=== PATIENT | female | born 1930 | race Caucasian/White ===

== ENCOUNTER 2018-02-12 16:22 | Emergency (ER) | payer MEDICARE ==
[~2018-02-12 16:22] MED LIST: AMIO0.1T PO; AMLO2.5T PO; ASPI-516 CHEW; CARB25TA9 PO; FURO1TAB62 PO; LEVO25TA4 PO; MULT-135 PO; OXYB5TAB8 PO
--- NOTE | 2018-02-12 16:32 | PD ---
HPI Chief Complaint: Status post fall Time Seen by Provider: 16:25 Travel History International Travel<30 days: No Contact w/Intl Traveler<30days: No Traveled to known affect area: No History of Present Illness HPI Patient comes in stating that she had a mechanical trip and fall after getting her food and [employer]. She ended up falling flat on her buttocks and then going somewhat forward hitting the side of her head against her vehicles bumper. Witnesses were present and described the event and corroborated, denied any LOC or seizure tonic-clonic type activity noted. Patient denies any alleviating or aggravating factors. Patient comes in complaining of right sided head pain and low back pain. Both are described as sharp pain, nonradiating, 6-7 out of 10, worse by palpation or touching. Patient denies any associated factors such as loss of consciousness, fever, rash, chest pain, abdominal pain, pelvic pain, pain over the coccyx, nausea, vomiting, diarrhea, cough/runny nose/sore throat/visual changes. Stated allergies to cephalexin, doxazosin, doxycycline, epinephrine, penicillin, Past medical history significant for hypothyroid, neuropathy of bilateral feet, craniotomy for subdural bleed, atrial flutter history atrial fibrillation, hypertension, small bowel obstruction, cholecystectomy, hysterectomy, per record review patient has thrombocytopenia and sickle cell disease as well as developed C. difficile during her craniotomy admission. PFSH Past Medical History Hx Anticoagulant Therapy: Yes (BABY ASA) Arthritis: Yes (HANDS, FEET) Asthma: No Atrial Fibrillation: Yes Autoimmune Disease: No Blood Disorders: No Anxiety: No Depression: No Heart Rhythm Problems: Yes (A-FLUTTER) Cancer: Yes (LEFT BREAST) Cardiovascular Problems: Yes High Cholesterol: No Chemotherapy: No Chest Pain: No Congestive Heart Failure: No COPD: No Cerebrovascular Accident: No Diabetes: No Diminished Hearing: No Endocrine: Yes Gastrointestinal Disorders: Yes (SBO) GERD: No Glaucoma: Yes Genitourinary: Yes (OVERACTIVE) Headaches: No Hepatitis: No Hiatal Hernia: No Hypertension: Yes Immune Disorder: No Implanted Vascular Access Dvce: No Musculoskeletal: Yes (ARTHRITIS, OSTEOPENIA) Neurologic: Yes (NEUROPATHY IN BILATERAL FEET, SUBDURAL BLEED ) Psychiatric: No Reproductive: No Respiratory: No Migraines: No Myocardial Infarction: No Radiation Therapy: No Seizures: No Sickle Cell Disease: Yes Sleep Apnea: No Thyroid Disease: Yes (HYPO) Ulcer: No Menopausal: Yes : 2 Para: 2 Miscarriage: 0 : 0 Past Surgical History Abdominal Surgery: Yes ( PARTIAL SM. BOWEL RESECT., [id number]) AICD: No Appendectomy: No Arteriovenous Shunt: No Cardiac Surgery: No Cholecystectomy: Yes Ear Surgery: No Endocrine Surgery: No Eye Surgery: No Genitourinary Surgery: No Gynecologic Surgery: Yes (HYSTERECTOMY 1974 , VULVA SURGERY ) Hysterectomy: Yes Insulin Pump: No Joint Replacement: No Neurologic Surgery: Yes (CRANIOTOMY (TRAUMA)) Oral Surgery: No Pacemaker: No Thoracic Surgery: No Other Surgery: Yes (CRANIOTOMY 03/2009 SECONDARY TO SUBDURAL HEMATOMA. LEFT MASTECTOMY 1973) Social History Alcohol Use: No Tobacco Use: No Substance Use: No Allergies-Medications (Allergen,Severity, Reaction): Coded Allergies: doxazosin (Verified Allergy, Severe, 02/12/18) doxycycline (Verified Allergy, Severe, Hives, 02/12/18) penicillin G (Verified Allergy, Severe, Hives, 02/12/18) cephalexin (Verified Allergy, Unknown, RASH, 02/12/18) epinephrine (Verified Adverse Reaction, Unknown, TAKES PACERONE, 02/12/18) PER DR MARSHALL Uncoded Allergies: "DECONGESTANTS" (Adverse Reaction, Unknown, TAKES PACERONE, 05/11/15) PER DR MARSHALL Reported Meds & Prescriptions Reported Meds & Active Scripts Active Ditropan (Oxybutynin Chloride) 5 Mg Tab 5 Mg PO Q12HR 30 Days Reported Carbidopa-Levodopa 25-100 Mg Tab 1 Tab PO TID Aspirin 81 Mg Chew 81 Mg CHEW DAILY Multi Vitamin (Multiple Vitamin) 1 Tab Tab 1 Tab PO DAILY Lasix (Furosemide) 20 Mg Tab 20 Mg PO DAILY PRN Amiodarone (Amiodarone HCl) 100 Mg Tab 100 Mg PO EVERY OTHER DAY on and thursday Levothyroxine (Levothyroxine Sodium) 25 Mcg Tab 25 Mcg PO DAILY Amlodipine (Amlodipine Besylate) 2.5 Mg Tab 2.5 Mg PO DAILY Review of Systems General / Constitutional: No: Fever Eyes: No: Visual changes HENT: Positive: Headaches Cardiovascular: No: Chest Pain or Discomfort Respiratory: No: Shortness of Breath Gastrointestinal: No: Abdominal Pain Genitourinary: No: Dysuria Musculoskeletal: Positive: Other (Low back pain) Skin: No Rash Neurologic: No: Weakness Psychiatric: No: Depression Endocrine: No: Polydipsia Hematologic/Lymphatic: No: Easy Bruising Physical Exam Narrative GENERAL: Well-nourished, well-developed patient in no apparent distress.patient arrived shedpacked, ccollar in place by ems. SKIN: Warm and dry. HEAD: Atraumatic. Normocephalic. EYES: Pupils equal and round. No scleral icterus. No injection or drainage. ENT: No nasal bleeding or discharge. Mucous membranes pink and moist. NECK: Trachea midline. No JVD. no midline ttp. C-collar in place. Backboard removed CARDIOVASCULAR: Regular rate and rhythm. no rubs or gallops RESPIRATORY: No accessory muscle use. Clear to auscultation. Breath sounds equal bilaterally. GASTROINTESTINAL: Abdomen soft, non-tender, nondistended. No rebound or guarding MUSCULOSKELETAL: Extremities without clubbing, cyanosis, or edema. No obvious deformities. NEUROLOGICAL: Awake and alert. No obvious cranial nerve deficits. Motor grossly within normal limits. Five out of 5 muscle strength in the arms and legs. Normal speech. PSYCHIATRIC: Appropriate mood and affect; insight and judgment normal. Data Data Last Documented VS Vital Signs Date Time Temp Pulse Resp B/P (MAP) Pulse Ox O2 Delivery O2 Flow Rate FiO2 02/12/18 17:10 64 16 157/71 (99) 98 Room Air 02/12/18 16:[address] Brain W/O Iv Contrast(Rout) (02/12/18 16:25) Ct Cerv Spine W/O Contrast (02/12/18 16:25) Spine, Lumbar Comp W/Obliq (02/12/18 ) Acetamin-Hydrocod 325-7.5 Mg (Adamant 7.5 (02/12/18 16:45) MDM Medical Decision Making Medical Screen Exam Complete: Yes Emergency Medical Condition: Yes Medical Record Reviewed: Yes Differential Diagnosis Skull fracture versus intracranial hemorrhage versus scalp contusion versus neck and low back fracture versus dislocation versus subluxation Narrative Course Head CT read by radiologist as no acute intracranial abnormalities with exception of right-sided sphenoid sinusitis CT C-spine shows no acute findings per radiology report and only reports a stable minimal anterolisthesis of C4 on C5 L spine shows per radiology report mild dextroscoliosis no acute fracture or dislocation Diagnosis Primary Impression: SCALP CONTUSION Additional Impression: LOW BACK STRAIN Patient Instructions: General Instructions, Low Back Strain (ED), Scalp Contusion in Adults (ED) Scripts Tramadol (Ultram) 50 Mg Tab 50 MG PO Q8H Y for PAIN, #12 TAB 0 Refills Prov: Drake Spicer MD 02/12/18 Disposition: 01 DISCHARGE HOME Condition: Stable Drake Spicer MD February 12, 2018 16:32
[2018-02-12 16:35] VITALS: BP 189/80; PULSE 105; RESP 20; TEMP 97.4; O2SAT 98
[2018-02-12] MEDS ORDERED: ACETAMINOPHEN/HYDROcodone 325 MG/7.5 MG TAB PO ONE (16:45)
[2018-02-12 17:10] VITALS: BP 157/71; PULSE 64; RESP 16; O2SAT 98
--- NOTE | 2018-02-12 17:26 | RADRPT ---
EXAM DATE/TIME: 02/12/2018 16:32 [facility] COMPARISON: No previous studies available for comparison. INDICATIONS : Lumbar spine pain post fall. MEDICAL HISTORY : Hypertension. Sickle Cell disease SURGICAL HISTORY : Hysterectomy. Bowel resection ENCOUNTER: Initial ACUITY: 1 day PAIN SCORE: 9/10 LOCATION: Bilateral lumbar spine FINDINGS: Mild dextroscoliosis. No acute fracture or spondylolisthesis. Moderate degenerative disc disease and facet arthropathy. CONCLUSION: 1. Mild dextroscoliosis. No acute fracture or spondylolisthesis. Yunior Martinez MD on February 12, 2018 at 17:22 Board Certified Radiologist. This report was verified electronically.
--- NOTE | 2018-02-12 17:35 | RADRPT ---
EXAM DATE/TIME: 02/12/2018 17:14 [facility] COMPARISON: CT BRAIN W/O CONTRAST, October 09, 2015, 21:44. INDICATIONS : Trauma. Fall. Hit back of head. RADIATION DOSE: 61.88 CTDIvol (mGy) MEDICAL HISTORY : Carcinoma, breast. Renal failure, chronic. Cardiovascular diseaseHypertension. SURGICAL HISTORY : Colon resection. Hysterectomy.Craniotomy.Cholecystectomy. ENCOUNTER: Initial ACUITY: 1 day PAIN SCALE: 7/10 LOCATION: cranial TECHNIQUE: Multiple contiguous axial images were obtained of the head. Using automated exposure control and adj ustment of the mA and/or kV according to patient size, radiation dose was kept as low as reasonably a chievable to obtain optimal diagnostic quality images. DICOM format image data is available electro nically for review and comparison. FINDINGS: No acute intracranial hemorrhage, mass effect or shift. No hydrocephalus. Focal encephalomalacia righ t frontal lobe similar to October 2015. Previous right craniotomy. Air-fluid level in the right-sided sphenoid sinus. CONCLUSION: No acute intracranial abnormalities. Right-sided sphenoid sinusitis. Yunior Martinez MD on February 12, 2018 at 17:30 Board Certified Radiologist. This report was verified electronically.
--- NOTE | 2018-02-12 17:37 | RADRPT ---
EXAM DATE/TIME: 02/12/2018 17:14 [facility] COMPARISON: No previous studies available for comparison. INDICATIONS : Trauma. Fall. Hit back of head. RADIATION DOSE: 25.78 CTDIvol (mGy) MEDICAL HISTORY : Cardiovascular disease. Renal failure, chronic. Carcinoma, breast.Hypertension. SURGICAL HISTORY : Colon resection. Hysterectomy.Craniotomy.Cholecystectomy. ENCOUNTER: Initial ACUITY: 1 day PAIN SCALE: 4/10 LOCATION: neck TECHNIQUE: Volumetric scanning of the cervical spine was performed. Multiplanar reconstructions in the sagittal, coronal and oblique axial planes were performed. Using automated exposure control and adjustment o f the mA and/or kV according to patient size, radiation dose was kept as low as reasonably achievable to obtain optimal diagnostic quality images. DICOM format image data is available electronically f or review and comparison. FINDINGS: No acute fracture. Stable minimal anterolisthesis of C4 on C5 since 2014 comparison. Moderate degener ative disc disease. No bony canal stenosis. Mild multilevel foraminal encroachment is stable. Apical lung scarring appears stable. Mild facet arthropathy. CONCLUSION: 1. No acute findings. Stable minimal anterolisthesis of C4 on C5. 2. Right-sided sphenoid sinusitis. Yunior Martinez MD on February 12, 2018 at 17:32 Board Certified Radiologist. This report was verified electronically.
[2018-02-12] MEDS ORDERED: TRAM50 PO (17:49)
[2018-02-12] MEDS ORDERED: ACETAMINOPHEN 325 MG TAB PO ONE (18:00)
[2018-02-12] MEDS ORDERED: ACETAMINOPHEN 650 MG/20.3 ML UDC PO ONE (18:30)
[2018-02-12 18:48] VITALS: BP 174/85; PULSE 64; RESP 16; O2SAT 98
== END 2018-02-12 18:50 | disposition home or self-care (01) ==
LOC: PHED 16:22
DX: S00.03XA Contusion of scalp, initial encounter (principal); S39.012A Strain of muscle, fascia and tendon of lower back, initial encounter; W01.198A Fall on same level from slipping, tripping and stumbling with subsequent striking against other object, initial encounter; E03.9 Hypothyroidism, unspecified; G62.9 Polyneuropathy, unspecified; I48.91 Unspecified atrial fibrillation; I10 Essential (primary) hypertension; D57.1 Sickle-cell disease without crisis; I48.92 Unspecified atrial flutter
CPT/HCPCS: 70450; 72110; 72125

== ENCOUNTER 2018-11-16 21:01 | Observation (INO) ==
[2018-11-16] MEDS ORDERED: Sodium Chlor 0.9% Inj 500 ML IV.SIG ONE (21:44)
--- NOTE | 2018-11-16 22:11 | XR ---
EXAM DATE: 11/16/2018 10:01 PM EST AGE/SEX: 88 years / Female INDICATIONS: Chest pain. CLINICAL DATA: This is the patient's initial encounter. Patient reports that signs and symptoms have been present for 1 day and indicates a pain score of Nonresponsive. MEDICAL/SURGICAL HISTORY: Hypertension. None. COMPARISON: [facility], XR CHEST PA AND LAT, 07/14/2018. . FINDINGS: A single AP view of the chest demonstrates the lungs to be symmetrically hyperinflated without eviden ce of mass, infiltrate or effusion. Biapical scarring. Cardiomegaly. The cardiomediastinal contours a re unremarkable. Osseous structures are intact. Scoliosis. CONCLUSION: 1. No acute cardiopulmonary disease. 2. Hyperinflation. 3. Cardiomegaly. Electronically signed by: Jaime Fischer MD Board Certified Radiologist 11/16/2018 10:10 PM EST
[2018-11-16 23:06] LABS: Alanine Aminotransferase 9 U/L (10-53); Alkaline Phosphatase 105 U/L (45-117); Creatine Kinase 147 U/L (26-192); Total Protein 5.8 g/dL (6.4-8.2)
[2018-11-16 23:12] LABS: Baso % (Auto) 0.5 % (0.0-2.0); Eos # (Auto) 0.1 th/mm3 (0.0-0.4); Eos % (Auto) 1.5 % (0.0-4.0); Hematocrit 34.5 % (35.0-46.0); Hemoglobin 11.6 gm/dL (11.6-15.3); Lymph # (Auto) 0.5 th/mm3 (1.0-4.8); Lymph % (Auto) 9.5 % (9.0-44.0); Mean Corpuscular HGB Conc 33.6 % (32.0-36.0); Mean Corpuscular Hemoglobin 32.5 pg (27.0-34.0); Mean Corpuscular Volume 96.6 fL (80.0-100.0); Mean Platelet Volume 10.2 fL (7.0-11.0); Mono # (Auto) 0.4 th/mm3 (0.0-0.9); Mono % (Auto) 7.2 % (0.0-8.0); Neut # (Auto) 4.7 th/mm3 (1.8-7.7); Neut % (Auto) 81.3 % (16.0-70.0); Platelet Count 129 th/mm3 (150-450); Red Blood Count 3.57 mil/mm3 (4.00-5.30); Red Cell Distribution Width 13.9 % (11.6-17.2); White Blood Count 5.7 th/mm3 (4.0-11.0)
--- NOTE | 2018-11-16 23:17 | CT ---
EXAM DATE: 11/16/2018 11:14 PM EST AGE/SEX: 88 years / Female INDICATIONS: Dizziness. CLINICAL DATA: This is the patient's initial encounter. Patient reports that signs and symptoms have been present for 1 day and indicates a pain score of 3/10. MEDICAL/SURGICAL HISTORY: Hypertension. Subdural hematoma. Craniotomy. RADIATION DOSE: 34.89 CTDI (mGy) COMPARISON: [facility], CT BRAIN W/O CONTRAST, 02/12/2018. . TECHNIQUE: CT of the head without contrast. Using automated exposure control and adjustment of the mA and/or kV according to patient size, radiation dose was kept as low as reasonably achievable to ob tain optimal diagnostic quality images. DICOM format image data is available electronically for revi ew and comparison. FINDINGS: Previous right frontotemporal craniotomy. Minimal encephalomalacia in the right orbitofrontal region. Brain is elsewhere symmetric and normal. No evidence of mass or hemorrhage. Nothing to suggest acute infarction. CONCLUSION: No acute intracranial findings. . Electronically signed by: Justin Cruz MD Board Certified Radiologist 11/16/2018 11:15 PM EST
[2018-11-16 23:19] LABS: Creatine Kinase MB 3.8 ng/mL (0.5-3.6)
[2018-11-16 23:20] LABS: Activated Partial Thrombo Time 21.9 sec (23.4-31.7)
[2018-11-16 23:23] LABS: Albumin 3.1 g/dL (3.4-5.0); Anion Gap 6 meq/L (5-15); Aspartate Aminotransferase 24 U/L (15-37); Blood Urea Nitrogen 32 mg/dL (7-18); Calcium 8.2 mg/dL (8.5-10.1); Carbon Dioxide 27.6 meq/L (21.0-32.0); Chloride 113 meq/L (98-107); Glomerular Filtration Rate 66 mL/min (>89); Glucose,Random 94 mg/dL (74-106); Lipase 172 U/L (73-393); Magnesium 2.2 mg/dL (1.5-2.5); Potassium 3.9 meq/L (3.5-5.1); Sodium 147 meq/L (136-145)
--- NOTE | 2018-11-16 23:40 | ED ---
HPI General Chief complaint: Dizziness Stated complaint: dizzy, diarhea Time Seen by Provider: 11/16/18 21:36 History of Present Illness HPI narrative: Ms. Pierson is an 88 year old woman who is presenting with an episode of "blanking out" while sitting on a bar stool. She reports she had just finished eating supper and was sitting on the counter on a bar stool and had a sudden onset of "blanking out" at 7 PM in which everything went dark for 1 minute. She does not know whether or not she lost consciousness but she denies feeling dizzy before or after the episode. She denies hitting her head but did hit her right forearm on a frying rueda. She reports she has had diarrhea for four days, with 10-12 episodes per day. She reports she does not think she drank enough fluids today, reporting one cup of coffee and a cup of iced tea as her fluid intake for today. She denies any pain anywhere else other than her wrist. She reports she has had stomach cramps for a year that she has had extensive testing for but with no cause reported. She has been taking peptobismol for her diarrhea and her PCP advised her to start taking immodium today over the phone but she has not gotten the chance to do so yet. She says she gets diarrhea on/off for months. Viviana Tinsley, MS3 Related Data Home Medications Medication Instructions Recorded Confirmed amiodarone See Label Instructions .ROUTE 11/16/18 11/16/18 .COMPLEX amlodipine 2.5 mg PO DAILY 11/16/18 11/16/18 carbidopa-levodopa 1.5 tab PO TID 11/16/18 11/16/18 furosemide See Label Instructions .ROUTE 11/16/18 11/16/18 .COMPLEX levothyroxine 1 tab PO DAILY 11/16/18 11/16/18 Allergies Allergy/AdvReac Type Severity Reaction Status Date / Time doxazosin Allergy Severe Verified 02/12/18 16:40 doxycycline Allergy Severe Hives Verified 02/12/18 16:40 penicillin G Allergy Severe Hives Verified 02/12/18 16:40 cephalexin Allergy Unknown RASH Verified 02/12/18 16:40 epinephrine AdvReac Unknown TAKES Verified 02/12/18 16:40 PACERONE "DECONGESTANTS" AdvReac Unknown TAKES Uncoded 05/11/15 14:17 PACERONE Review of Systems ROS: all other systems reviewed are negative [facility] Medical History Medical History Hypertension (Acute) Hypothyroid (Acute) Irregular heart rhythm (Acute) Social History Social History Substance History: No History of Abuse Second Hand Smoke Exposure: No Smoking Status: Never smoker How Often Do You Have a Drink Containing Alcohol: Never Recent Travel in [facility] within the Last 8 Weeks: No Recent Out of Country Travel within the Last 8 Weeks: No Immunization History Tetanus Immunization: Unsure Exam Const General: cooperative, no acute distress and well developed Nutritional Appearance: well nourished Orientation: alert, awake and oriented x3 HENMT Head: normocephalic and atraumatic Nose: no nasal discharge and no epistaxis Mouth: other (Dry mucus membranes) Throat: posterior oropharynx normal and uvula midline Eyes Sclera: normal sclerae Pupils: PERRL Neck Neck: no meningeal signs, trachea midline and no JVD Resp Effort & Inspection: no use of accessory muscles Auscultation: clear to auscultation bilaterally Cardio Rate: regular rate Rhythm: regular rhythm Heart Sounds: no murmurs GI Inspection: non-distended Palpation: soft, no hepatosplenomegaly, no guarding, not rigid and nontender Auscultation: normal bowel sounds Back/Spine/Pelvis Back: CVA tenderness (Reported on the left.) Skin General: dry skin (warm) Neuro General: alert, awake and oriented x3 Cranial Nerves: CN's II-XI intact bilaterally Speech: speech normal Motor: strength 5/5 throughout and no movement abnormalities noted Sensory Exam: no sensory deficits noted Extrem General: normal to inspection, no calf tenderness, no clubbing, no cyanosis and no edema Psych Mood: congruent mood Affect: normal affect Judgment: judgment good Course Initial Documented Vital Signs Temperature 98.8 F 11/16/18 21:16 Pulse Rate 68 11/16/18 21:16 Respiratory Rate 16 11/16/18 21:16 Blood Pressure 162/68 H 11/16/18 21:16 Pulse Oximetry 97 11/16/18 21:16 Last Documented Vital Signs Temperature 98.8 F 11/16/18 21:16 Pulse Rate 62 11/17/18 02:00 Respiratory Rate 24 11/17/18 02:00 Blood Pressure 168/76 H 11/17/18 02:00 Pulse Oximetry 98 11/17/18 02:00 Medical Decision Making MDM Narrative Medical decision making narrative: I, Dr. Haines, have reviewed the medical student's documentation, and I am in agreement, met with the patient face to face, made the diagnosis, and the medical decision making was done by me. The patient was initially evaluated by Viviana MS III. Please see their complete history and physical. *My assessment and Findings: The patient presents with a reported history of blacking out for a few seconds prior to arrival. She reports that she had no symptoms prior to the onset of this. She reports that she did hit her head and also hit her right arm requiring a skin tear. She denies having any chest pain before or after the incident. She denies having any palpitations, shortness of breath, or lightheaded sensation. She does however report that she has had a recurrence of her chronic diarrhea that began approximately 4-5 days ago. She reports that she has had problems with this for the last year and has been under evaluation by both her primary care physician and a director customer. She reports that they have not been able to determine the cause. She reports that when she has the diarrheal episodes she will have up to 10-15 episodes of diarrhea daily. She reports that the stool is brown in color. She denies having any blood or mucus in the stool. During the course of the patient's emergency department visit, the patient's history, examination, and differential diagnosis were reviewed with the patient. The patient was placed on a hydrogen operator with oximetry and frequent blood pressure monitoring. The patient had IV access obtained and blood work sent for analysis. The patient was initially provided we will saline of 500 mL bolus x1. The patient's diagnostic studies were reviewed and remarkable for The patient's case including history, pertinent physical examination findings, and laboratory studies were discussed with Dr. Navarro. It was agreed that the patient would be admitted to the hospitalist service. Differential Diagnosis Differential Diagnosis: Vasovagal syncope, versus orthostasis, versus cardiac arrhythmia, versus acute coronary syndrome, versus intracranial hemorrhage Medical Records Medical records reviewed: Yes I reviewed the patient's medical records. Lab Data Lab results reviewed: Yes I reviewed the patient's lab results. Result diagrams: 11/16/18 22:15 11/16/18 22:15 Lab Results 11/16/18 11/16/18 11/16/18 Range/Units 22:15 22:15 22:15 WBC 5.7 (4.0-11.0) th/mm3 RBC 3.57 L (4.00-5.30) mil/mm3 Hgb 11.6 (11.6-15.3) gm/dL Hct 34.5 L (35.0-46.0) % MCV 96.6 (80.0-100.0) fL MCH 32.5 (27.0-34.0) pg MCHC 33.6 (32.0-36.0) % RDW 13.9 (11.6-17.2) % Plt Count 129 L (150-450) th/mm3 MPV 10.2 (7.0-11.0) fL Neut % (Auto) 81.3 H (16.0-70.0) % Lymph % (Auto) 9.5 (9.0-44.0) % Edmunds % (Auto) 7.2 (0.0-8.0) % Eos % (Auto) 1.5 (0.0-4.0) % Baso % (Auto) 0.5 (0.0-2.0) % Neut # (Auto) 4.7 (1.8-7.7) th/mm3 Lymph # (Auto) 0.5 L (1.0-4.8) th/mm3 Edmunds # (Auto) 0.4 (0.0-0.9) th/mm3 Eos # (Auto) 0.1 (0.0-0.4) th/mm3 Baso # (Auto) 0.0 (0.0-0.2) th/mm3 WBC Differential . Differential Comment Auto diff final PT 10.0 (9.8-11.6) sec INR 1.0 Ratio APTT 21.9 L (23.4-31.7) sec Sodium (136-145) meq/L Potassium (3.5-5.1) meq/L Chloride (98-107) meq/L Carbon Dioxide (21.0-32.0) meq/L Anion Gap (5-15) meq/L BUN (7-18) mg/dL Creatinine (0.50-1.00) mg/dL Estimated GFR (>89) mL/min Random Glucose (74-106) mg/dL Calcium (8.5-10.1) mg/dL Magnesium (1.5-2.5) mg/dL Total Bilirubin (0.2-1.0) mg/dL AST (15-37) U/L ALT (10-53) U/L Alkaline Phosphatase (45-117) U/L Total Creatine Kinase (26-192) U/L CK-MB (CK-2) (0.5-3.6) ng/mL Troponin I (0.02-0.05) ng/mL B-Natriuretic Peptide 202 H (0-100) pg/mL Total Protein (6.4-8.2) g/dL Albumin (3.4-5.0) g/dL Lipase (73-393) U/L Urine Color (Yellw/Straw) Urine Clarity (Clear) Urine pH (5.0-8.5) Ur Specific [place] (1.002-1.035) Urine Protein (Neg-Trace) mg/dL Urine Glucose (UA) (Negative) mg/dL Urine Ketones (Negative) mg/dL Urine Occult Blood (Negative) Urine Nitrate (Negative) Urine Bilirubin (Negative) Urine Urobilinogen (Less than 2) mg/dL Ur Leukocyte Esterase (Negative) Urine RBC (0-3) /hpf Urine WBC (0-5) /hpf Ur Squamous Epith Cells (0-5) /hpf Calcium Oxalate Crystal (None) /hpf Hyaline Casts (0-3) /lpf Urine Mucus (Occasional) /lpf Micro UA Comment Ur Microscopic Review Urine Culture Comments Serum Alcohol (0-5) mg/dL 11/16/18 11/17/18 Range/Units 22:15 00:10 WBC (4.0-11.0) th/mm3 RBC (4.00-5.30) mil/mm3 Hgb (11.6-15.3) gm/dL Hct (35.0-46.0) % MCV (80.0-100.0) fL MCH (27.0-34.0) pg MCHC (32.0-36.0) % RDW (11.6-17.2) % Plt Count (150-450) th/mm3 MPV (7.0-11.0) fL Neut % (Auto) (16.0-70.0) % Lymph % (Auto) (9.0-44.0) % Edmunds % (Auto) (0.0-8.0) % Eos % (Auto) (0.0-4.0) % Baso % (Auto) (0.0-2.0) % Neut # (Auto) (1.8-7.7) th/mm3 Lymph # (Auto) (1.0-4.8) th/mm3 Edmunds # (Auto) (0.0-0.9) th/mm3 Eos # (Auto) (0.0-0.4) th/mm3 Baso # (Auto) (0.0-0.2) th/mm3 WBC Differential Differential Comment PT (9.8-11.6) sec INR Ratio APTT (23.4-31.7) sec Sodium 147 H (136-145) meq/L Potassium 3.9 (3.5-5.1) meq/L Chloride 113 H (98-107) meq/L Carbon Dioxide 27.6 (21.0-32.0) meq/L Anion Gap 6 (5-15) meq/L BUN 32 H (7-18) mg/dL Creatinine 0.82 (0.50-1.00) mg/dL Estimated GFR 66 L (>89) mL/min Random Glucose 94 (74-106) mg/dL Calcium 8.2 L (8.5-10.1) mg/dL Magnesium 2.2 (1.5-2.5) mg/dL Total Bilirubin 0.4 (0.2-1.0) mg/dL AST 24 (15-37) U/L ALT 9 L (10-53) U/L Alkaline Phosphatase 105 (45-117) U/L Total Creatine Kinase 147 (26-192) U/L CK-MB (CK-2) 3.8 H (0.5-3.6) ng/mL Troponin I Less than 0.02 L (0.02-0.05) ng/mL B-Natriuretic Peptide (0-100) pg/mL Total Protein 5.8 L (6.4-8.2) g/dL Albumin 3.1 L (3.4-5.0) g/dL Lipase 172 (73-393) U/L Urine Color Yellow (Yellw/Straw) Urine Clarity Hazy H (Clear) Urine pH 5.0 (5.0-8.5) Ur Specific [place] 1.026 (1.002-1.035) Urine Protein Negative (Neg-Trace) mg/dL Urine Glucose (UA) Negative (Negative) mg/dL Urine Ketones 20 (Negative) mg/dL Urine Occult Blood Negative (Negative) Urine Nitrate Negative (Negative) Urine Bilirubin Negative (Negative) Urine Urobilinogen 0.2 (Less than 2) mg/dL Ur Leukocyte Esterase Trace H (Negative) Urine RBC 1 (0-3) /hpf Urine WBC 3 (0-5) /hpf Ur Squamous Epith Cells <1 (0-5) /hpf Calcium Oxalate Crystal Occasional H (None) /hpf Hyaline Casts 3 (0-3) /lpf Urine Mucus Few H (Occasional) /lpf Micro UA Comment Culture not ind Ur Microscopic Review Not Reportable Urine Culture Comments Culture not ind Serum Alcohol Less than 3 (0-5) mg/dL Imaging Data Radiologist's impression: Head CT 11/16/18 21:44 CONCLUSION: No acute intracranial findings. . Chest X-Ray 11/16/18 21:45 CONCLUSION: 1. No acute cardiopulmonary disease. 2. Hyperinflation. 3. Cardiomegaly. ECG Data Attestation: I personally reviewed and interpreted this ECG as follows: Interpretation: The patient had an EKG done on arrival. The patient's EKG reveals a sinus rhythm with occasional supraventricular premature complexes, heart rate of 63, QRS duration 94 ms, QTC [address] segment elevation. Left ventricular hypertrophy by voltage is noted, left axis deviation is noted. Discharge Plan Discharge Disposition Patient Disposition: ED Admit(ED Internal Use Only) Discharge Order Discharge Orders: ED Use Only Admit Order (Routine); Ordered 11/17/18 Ordered By: Eugenia Haines Discharge Details Diagnosis: Syncope Physicians Team ED Provider: Eugenia Haines Primary Care Provider: Nelson Moore Attending Provider: Alley Navarro Discharge Interventions Interventions: Vital Signs Last Done: 11/16/18 21:43 ED Discharge Assessment Last Done: 11/17/18 04:10 Status ED Status: Admitted Observation Patient
[2018-11-17 00:50] LABS: Bilirubin,Urine Negative (Negative); Calcium Oxalate Crystals,Urine Occasional /hpf; Clarity,Urine Hazy (Clear); Color,Urine Yellow (Yellw/Straw); Glucose,Urine (UA) Negative (Negative); Hyaline Casts,Urine 3 /lpf (0-3); Leukocyte Esterase,Urine Trace (Negative); Mucus,Urine Few /lpf (Occasional); Nitrite,Urine Negative (Negative); Specific Gravity,Urine 1.026 (1.002-1.035); Squamous Epithelial Cell,Urine <1 /hpf (0-5)
[2018-11-17 00:52] LABS: Urobilinogen,Urine 0.2 mg/dL (Less than 2)
--- NOTE | 2018-11-17 03:11 | P.HPIM ---
History of Present Illness Service: [facility] Primary Care Physician: Nelson Moore MD Chief Complaint: lightheadedness History of Present Illness: 88-year-old female with a history of hypertension, hypothyroidism, A. fib, tremors presented to the ED with complaints of lightheadedness. Patient states she was sitting on a barstool after dinner and felt very lightheaded and blacked out for about a minute. She denies falling off a barstool or hitting her head at any time. She is complaining of nausea and diarrhea for the last 4 days with a cramping sensation in her abdomen. She does state she has some increased swelling in her bilateral lower extremities recently. She denies any fever or chills. No cough or congestion. She sees Dr. Plummer for cardiology. Review of Systems Review of Systems: all other systems reviewed are negative [facility] Medical History Medical History Hypertension (Acute) Hypothyroid (Acute) Irregular heart rhythm (Acute) Social History Social History Substance History: No History of Abuse Second Hand Smoke Exposure: No Smoking Status: Never smoker How Often Do You Have a Drink Containing Alcohol: Never Recent Travel in [facility] within the Last 8 Weeks: No Recent Out of Country Travel within the Last 8 Weeks: No Immunization History Tetanus Immunization: Unsure Medications and Allergies Allergies Allergy/AdvReac Type Severity Reaction Status Date / Time doxazosin Allergy Severe Verified 02/12/18 16:40 doxycycline Allergy Severe Hives Verified 02/12/18 16:40 penicillin G Allergy Severe Hives Verified 02/12/18 16:40 cephalexin Allergy Unknown RASH Verified 02/12/18 16:40 epinephrine AdvReac Unknown TAKES Verified 02/12/18 16:40 PACERONE "DECONGESTANTS" AdvReac Unknown TAKES Uncoded 05/11/15 14:17 PACERONE Home Medications Medication Instructions Recorded Confirmed Type amiodarone See Label Instructions .ROUTE 11/16/18 11/16/18 History .COMPLEX amlodipine 2.5 mg PO DAILY 11/16/18 11/16/18 History carbidopa-levodopa 1.5 tab PO TID 11/16/18 11/16/18 History furosemide See Label Instructions .ROUTE 11/16/18 11/16/18 History .COMPLEX levothyroxine 1 tab PO DAILY 11/16/18 11/16/18 History Active Medications: Active Medications Sodium Chloride (Ns Flush) 2 ml IV.FLUSH UNSCH PRN PRN Reason: FLUSH AFTER USING IV ACCESS Physical Exam Vital signs: Vital Signs 11/16/18 21:16 11/16/18 21:43 11/16/18 22:47 Temperature 98.8 F Pulse Rate 68 66 Respiratory Rate 16 24 Blood Pressure 162/68 H 181/77 H Pulse Oximetry 97 98 98 Intake & Output 11/16/18 11/16/18 11/17/18 06:59 18:59 06:59 Intake Total 500 / 500 Balance 500 / 500 Intake: IV 500 / 500 Narrative: GENERAL: Well-nourished patient in no distress SKIN: Warm and dry. No open lesions EYES: No scleral icterus. No injection or drainage. NECK: Supple, trachea midline. No JVD or lymphadenopathy. CARDIOVASCULAR: Regular rate and rhythm without murmurs, gallops, or rubs. +2 pitting edema bilateral lower extremities RESPIRATORY: Breath sounds equal bilaterally. No accessory muscle use. GASTROINTESTINAL: Abdomen soft, lower transverse tenderness, nondistended. MUSCULOSKELETAL: Left lower extremity edema greater than right, tremors of the head and upper extremities, Results Labs CBC & Chem 7: 11/16/18 22:15 11/16/18 22:[address] 11/16/18 21:44 CONCLUSION: No acute intracranial findings. . Chest X-Ray 11/16/18 21:45 CONCLUSION: 1. No acute cardiopulmonary disease. 2. Hyperinflation. 3. Cardiomegaly. Caprini VTE Risk Assessment Caprini VTE Risk Assessment: No/Low Risk (score <= 1) Caprini Risk Assessment Model: Point Value = 1 Point Value = 2 Point Value = 3 Point Value = 5 Age 41-60 Minor surgery BMI > 25 kg/m2 Swollen legs Varicose veins or History of unexplained or recurrent spontaneous Oral contraceptives or hormone replacement Sepsis (< 1 month) Serious lung disease, including pneumonia (< 1 month) Abnormal pulmonary function Acute myocardial infarction Congestive heart failure (< 1 month) History of inflammatory bowel disease Medical patient at bed rest Age 61-74 Arthroscopic surgery Major open surgery (> 45 min) Laparoscopic surgery (> 45 min) Malignancy Confined to bed (> 72 hours) Immobilizing plaster cast Central venous access Age >= 75 History of VTE Family history of VTE Factor V Leiden Prothrombin [id number] Lupus anticoagulant Anticardiolipin antibodies Elevated serum homocysteine Heparin-induced thrombocytopenia Other congenital or acquired thrombophilia Stroke (< 1 month) Elective arthroplasty Hip, pelvis, or leg fracture Acute spinal cord injury (< 1 month) Prophylaxis Regimen: Total Risk Factor Score Risk Level Prophylaxis Regimen 0-1 Low Early ambulation 2 Moderate Order ONE of the following: *Sequential Compression Device (SCD) *Heparin 5000 units SQ BID 3-4 Higher Order ONE of the following medications: *Heparin 5000 units SQ TID *Enoxaparin/Lovenox 40 mg SQ daily (WT < 150 kg, CrCl > 30 mL/min) *Enoxaparin/Lovenox 30 mg SQ daily (WT < 150 kg, CrCl > 10-29 mL/min) *Enoxaparin/Lovenox 30 mg SQ BID (WT < 150 kg, CrCl > 30 mL/min) AND/OR *Sequential Compression Device (SCD) 5 or more Highest Order ONE of the following medications: *Heparin 5000 units SQ TID (Preferred with Epidurals) *Enoxaparin/Lovenox 40 mg SQ daily (WT < 150 kg, CrCl > 30 mL/min) *Enoxaparin/Lovenox 30 mg SQ daily (WT < 150 kg, CrCl > 10-29 mL/min) *Enoxaparin/Lovenox 30 mg SQ BID (WT < 150 kg, CrCl > 30 mL/min) AND *Sequential Compression Device (SCD) Assessment and Plan Plan 88-year-old female with a history of hypertension, hypothyroidism, tachycardia, tremors presented to the ED with complaints of lightheadedness. Syncope, possible dehydration secondary to diarrhea BUN 32 -IVF for hydration -Carotid ultrasound and 2D echo ordered -Monitor vitals, Neuro checks -Labs in am -ortho static BP Left lower extremity edema rule out DVT -Doppler ultrasound ordered Diarrhea, rule out C. difficile -C. difficile ordered -IVF as above -Antiemetics as needed Hypertension, chronic -Resume home medications -Cardiac diet Hypothyroidism, chronic -Resume home medications DVT prophylaxis: SCDs The exam, history, and the medical decision-making described in the above note were completed with the assistance of the mid-level provider. I reviewed and agree with the findings presented. I attest that I had a [id number] encounter with the patient on the same day, and personally performed and documented my assessment and findings in the medical record.
--- NOTE | 2018-11-17 10:31 | US ---
EXAM DATE: 11/17/2018 10:15 AM EST AGE/SEX: 88 years / Female INDICATIONS: Thrombosis. CLINICAL DATA: This is the patient's initial encounter. Patient reports that signs and symptoms have been present for 1 day and indicates a pain score of 1/10. MEDICAL/SURGICAL HISTORY: . HTN. Hypothyroid. Irregular heart rhythm. None. COMPARISON: POI, US LEG VENOUS DOPPLER, BILATERAL, 07/14/2018. . TECHNIQUE: Venous ultrasound of both lower extremities was performed from the inguinal ligament to t he proximal calf. Real-time, color Doppler and spectral tracing, compression and augmentation techni ques were used. FINDINGS: Normal compression of the deep venous system from the inguinal region to the proximal calf . No echogenic clot is seen. Normal response of the venous system to augmentation and respiration. CONCLUSION: 1. Negative for deep venous thrombosis 2. Moderate subcutaneous edema Electronically signed by: Santos Rowe MD Board Certified Radiologist 11/17/2018 10:17 AM EST
--- NOTE | 2018-11-17 10:55 | US ---
EXAM DATE: 11/17/2018 10:26 AM EST AGE/SEX: 88 years / Female INDICATIONS: Syncope. CLINICAL DATA: This is the patient's initial encounter. Patient reports that signs and symptoms have been present for 1 day and indicates a pain score of 1/10. MEDICAL/SURGICAL HISTORY: . HTN. Hypothyroid. Irregular heart rhythm. None. COMPARISON: No prior exams available for comparison. VELOCITY PARAMETERS: ICA/CCA Ratio: Right 1.3 , Left 1.5 ICA: Right 86 cm/sec, Left 95 cm/sec CCA: Right 69 cm/sec, Left 63 cm/sec ECA: Right 61.5 cm/sec, Left 43 cm/sec Vertebral: Right 51 cm/sec antegrade, Left 56 cm/sec antegrade FINDINGS: Right Carotid: Mild arteriosclerotic plaque is visualized.The waveforms are within normal limits. Left Carotid: Mild arteriosclerotic plaque is visualized. The waveforms are within normal limits. Other: None. CONCLUSION: Negative for hemodynamically significant stenosis. Electronically signed by: Santos Rowe MD Board Certified Radiologist 11/17/2018 10:54 AM EST
[2018-11-17 11:41] LABS: Potassium 3.7 meq/L (3.5-5.1)
[2018-11-17] MEDS ORDERED: Acetaminophen 500 MG Tablet PO PRN (12:11)
[2018-11-17] MEDS ORDERED: AMIODARONE 100 MG SCH (12:15)
[2018-11-17] MEDS: amLODIPine 5 MG Tablet PO SCH (15:34)
--- NOTE | 2018-11-17 16:11 | P.PNIM ---
Subjective Interval history: Follow-up visit lightheadedness. Patient seen and examined while sitting up in bed eating her meal. She denies feeling dizzy or lightheaded. No chest pain, shortness of breath or palpitations. Inquiring about results of her work up. Physical Exam Vital signs: Vital Signs 11/16/18 21:16 11/16/18 21:43 11/16/18 22:47 Temperature 98.8 F Pulse Rate 68 66 Respiratory Rate 16 24 Blood Pressure 162/68 H 181/77 H Pulse Oximetry 97 98 98 11/17/18 02:00 11/17/18 04:00 11/17/18 06:55 Temperature 98.1 F Pulse Rate 62 60 54 L Respiratory Rate 24 12 Blood Pressure 168/76 H 165/70 H Pulse Oximetry 98 97 11/17/18 07:45 11/17/18 09:44 11/17/18 10:08 Temperature 98.0 F Pulse Rate 58 L 68 Respiratory Rate 18 Blood Pressure 143/65 H Pulse Oximetry 98 98 11/17/18 11:30 11/17/18 12:02 11/17/18 15:32 Temperature 98.0 F 97.8 F Pulse Rate 72 93 H 66 Respiratory Rate 16 16 Blood Pressure 191/78 H 150/66 H Pulse Oximetry 96 99 Intake & Output 11/16/18 11/17/18 11/17/18 18:59 06:59 18:59 Intake Total 500 / 500 Balance 500 / 500 Weight 0 g Intake: IV 500 / 500 Other: # Voids 1 Date of Last Bowel Movement 11/15/18 Weight On Admission 0 g Narrative: GENERAL: Well-nourished patient in no distress SKIN: Warm and dry. No open lesions EYES: No scleral icterus. No injection or drainage. NECK: Supple, trachea midline. No JVD or lymphadenopathy. CARDIOVASCULAR: Regular rate and rhythm without murmurs, gallops, or rubs. +2 pitting edema bilateral lower extremities RESPIRATORY: Breath sounds equal bilaterally. No accessory muscle use. GASTROINTESTINAL: Abdomen soft, lower transverse tenderness, nondistended. MUSCULOSKELETAL: Left lower extremity edema greater than right, tremors of the head and upper extremities, Results Labs CBC & Chem 7: 11/16/18 22:15 11/17/18 10:52 Imaging Imaging: Impressions Head CT 11/16/18 21:44 CONCLUSION: No acute intracranial findings. . Chest X-Ray 11/16/18 21:45 CONCLUSION: 1. No acute cardiopulmonary disease. 2. Hyperinflation. 3. Cardiomegaly. Carotid Doppler Study 11/17/18 00:00 CONCLUSION: Negative for hemodynamically significant stenosis. Venous Doppler Study 11/17/18 00:00 CONCLUSION: 1. Negative for deep venous thrombosis 2. Moderate subcutaneous edema Assessment and Plan Plan Patient is a 88-year-old female with a history of hypertension, hypothyroidism, tachycardia, tremors presented to the ED with complaints of lightheadedness. Syncope, possible dehydration secondary to diarrhea BUN 32 -IVF for hydration -Carotid ultrasound negative for hemodynamically significant stenosis and 2D echo pending -Monitor vitals, Neuro checks -ortho static BP Left lower extremity edema rule out DVT -Doppler ultrasound negative for DVT, moderate subcutaneous edema noted Diarrhea, rule out C. difficile -C. difficile ordered -IVF as above -Antiemetics as needed Hypertension, chronic -Resume home medications -Cardiac diet Hypothyroidism, chronic -Resume home medications MDM: self Code: Full GI ppx: none DVT prophylaxis: SCDs Discussed with: RN, patient, supervising MD Dispo: home once medically optimized Progress Note: Quality VTE Deep Vein Thrombosis/Pulmonary Embolism Present on Admission: No
--- NOTE | 2018-11-17 18:11 | ECHRPT ---
Indication: SYNCOPE CONCLUSIONS Normal left ventricular size. Mild concentric left ventricular hypertrophy. The left ventricular systolic function is hyperdynamic with an estimated ejection fraction in the ra nge of 65- 70%. The left atrial size is mildly dilated. The right atrial size is mildly dilated. Mild mitral valve regurgitation. Aortic valve sclerosis is present. [id number] aortic valve regurgitation. There is mild to moderate tricuspid valve regurgitation. The estimated pulmonary arterial pressure is 39 mmHg. There is a small pericardial effusion present. BP: / HR: Rhythm: Sinus MEASUREMENTS (Male / Female) Normal Values Technical Quality:Technically difficult study 2D ECHO LV Diastolic Diameter PLAX 5.7 cm 4.2 - 5.9 / 3.9 - 5.3 cm LV Systolic Diameter PLAX 3.9 cm IVS Diastolic Thickness 1.1 cm 0.6 - 1.0 / 0.6 - 0.9 cm LVPW Diastolic Thickness 1.1 cm 0.6 - 1.0 / 0.6 - 0.9 cm LV Relative Wall Thickness 0.4 LVOT Diameter 1.7 cm Aortic Root Diameter 2.9 cm DOPPLER AV Peak Velocity 156.0 cm/s AV Peak Gradient 9.7 mmHg AV Mean Gradient 5.0 mmHg AV Velocity Time Integral 30.5 cm LVOT Peak Velocity 88.0 cm/s LVOT Peak Gradient 3.1 mmHg LVOT Velocity Time Integral 20.7 cm AV Area Cont Eq vti 1.5 cm AV Area Cont Eq pk 1.3 cm TR Peak Velocity 268.0 cm/s TR Peak Gradient 28.7 mmHg Right Atrial Pressure 10.0 mmHg Pulmonary Artery Systolic Pressu 38.7 mmHg Right Ventricular Systolic Press 38.7 mmHg FINDINGS LEFT VENTRICLE Normal left ventricular size. Mild concentric left ventricular hypertrophy. The left ventricular systolic function is hyperdynamic with an estimated ejection fraction in the ra nge of 65- 70%. RIGHT VENTRICLE Normal right ventricular size and systolic function. LEFT ATRIUM The left atrial size is mildly dilated. RIGHT ATRIUM The right atrial size is mildly dilated. ATRIAL SEPTUM No atrial level shunt is demonstrated by color flow Doppler interrogation. AORTA The aortic root and proximal ascending aorta are not well visualized. MITRAL VALVE Mild mitral valve regurgitation. AORTIC VALVE Aortic valve sclerosis is present. [id number] aortic valve regurgitation. TRICUSPID VALVE There is mild to moderate tricuspid valve regurgitation. The estimated pulmonary arterial pressure is 38.7 mmHg. PULMONARY VALVE The pulmonary valve is not well visualized. VESSELS The inferior vena cava is normal in size. PERICARDIUM There is a small pericardial effusion present. James Ch MD, FACC (Electronically Signed) Final Date:17 November 2018 18:10
--- NOTE | 2018-11-17 20:20 | ECG ---
Date Performed: 11/16/2018 Time Performed: 23:26:31 PTAGE: 88 years EKG: Sinus rhythm WITH OCCASIONAL SUPRAVENTRICULAR PREMATURE COMPLEXES MARKED LEFT AXIS DEVIATION LEFT VENTRICULAR HYP ERTROPHY AND ST-T CHANGE POSSIBLE SEPTAL MYOCARDIAL INFARCTION ABNORMAL ECG PREVIOUS TRACING : 08/09/2016 08.59 Since the previous tracing, no significant change noted DOCTOR: Deuce Car Interpretating Date/Time 11/17/2018 20:18:25
[2018-11-17] MEDS: Amiodarone 200 MG Tablet PO SCH (21:09)
[2018-11-18 07:41] LABS: Baso % (Auto) 0.3 % (0.0-2.0); Eos # (Auto) 0.1 th/mm3 (0.0-0.4); Eos % (Auto) 1.9 % (0.0-4.0); Hematocrit 34.8 % (35.0-46.0); Hemoglobin 12.3 gm/dL (11.6-15.3); Lymph # (Auto) 0.6 th/mm3 (1.0-4.8); Lymph % (Auto) 8.4 % (9.0-44.0); Mean Corpuscular HGB Conc 35.4 % (32.0-36.0); Mean Corpuscular Hemoglobin 33.6 pg (27.0-34.0); Mean Platelet Volume 10.1 fL (7.0-11.0); Mono # (Auto) 0.5 th/mm3 (0.0-0.9); Mono % (Auto) 7.8 % (0.0-8.0); Neut # (Auto) 5.4 th/mm3 (1.8-7.7); Neut % (Auto) 81.6 % (16.0-70.0); Platelet Count 160 th/mm3 (150-450); Red Blood Count 3.67 mil/mm3 (4.00-5.30); Red Cell Distribution Width 14.2 % (11.6-17.2); White Blood Count 6.7 th/mm3 (4.0-11.0)
[2018-11-18] MEDS: amLODIPine 5 MG Tablet PO SCH (09:10)
[2018-11-18] MEDS ORDERED: Loperamide 2 MG Capsule PO PRN (17:05)
--- NOTE | 2018-11-18 17:09 | P.PNIM ---
Subjective Interval history: Follow-up visit lightheadedness Patient resting in bed. All test results and labs reviewed with her at the bedside. Patient expresses frustration over her intermittent episodes of diarrhea. She states she was evaluated by GI outpatient for this in the past with recommendations to take Pepto Bismol. She denies abdominal pain, nausea or vomiting. No dizziness or lightheadedness. Physical Exam Vital signs: Vital Signs 11/17/18 20:00 11/17/18 20:13 11/18/18 00:00 Temperature 98.0 F 97.6 F Pulse Rate 55 L 86 Respiratory Rate 12 12 Blood Pressure 168/72 H 155/67 H Pulse Oximetry 97 97 94 L 11/18/18 00:30 11/18/18 03:38 11/18/18 07:50 Temperature 97.7 F 97.8 F Pulse Rate 52 L 60 60 Respiratory Rate 12 17 Blood Pressure 157/69 H 161/42 H Pulse Oximetry 96 98 11/18/18 08:00 11/18/18 12:00 11/18/18 16:00 Temperature 96.8 F L 97.7 F Pulse Rate 53 L 53 L 64 Respiratory Rate 16 16 Blood Pressure 150/65 H 175/72 H Pulse Oximetry 95 90 L Intake & Output 11/17/18 11/18/18 11/18/18 18:59 06:59 18:59 Weight 0 g Other: # Voids 1 Date of Last Bowel Movement 11/15/18 11/15/18 Weight On Admission 0 g Narrative: GENERAL: Well-nourished patient in no distress SKIN: Warm and dry. No open lesions EYES: No scleral icterus. No injection or drainage. NECK: Supple, trachea midline. No JVD or lymphadenopathy. CARDIOVASCULAR: Regular rate and rhythm without murmurs, gallops, or rubs. +2 pitting edema bilateral lower extremities RESPIRATORY: Breath sounds equal bilaterally. No accessory muscle use. GASTROINTESTINAL: Abdomen soft, lower transverse tenderness, nondistended. MUSCULOSKELETAL: Left lower extremity edema greater than right, tremors of the head and upper extremities, Results Labs CBC & Chem 7: 11/20/18 09:41 11/20/18 09:40 Assessment and Plan Plan Patient is a 88-year-old female with a history of hypertension, hypothyroidism, tachycardia, tremors presented to the ED with complaints of lightheadedness. Syncope, possible dehydration secondary to diarrhea -IVF for hydration -Carotid ultrasound negative for hemodynamically significant stenosis and 2D echo with no significant abnormality -Monitor vitals, Neuro checks Left lower extremity edema rule out DVT -Doppler ultrasound negative for DVT, moderate subcutaneous edema noted Diarrhea, rule out C. difficile -C. difficile negative -IVF as above -Antiemetics as needed Hypertension, chronic -Resume home medications -Cardiac diet Hypothyroidism, chronic -Resume home medications MDM: self Code: Full GI ppx: none DVT prophylaxis: SCDs Discussed with: RN, patient, supervising MD Dispo: home with HH once medically optimized. PT to re-evaluate patient to see if she is appropriate to go home with . Progress Note: Quality VTE Deep Vein Thrombosis/Pulmonary Embolism Present on Admission: No
[2018-11-19] MEDS: amLODIPine 5 MG Tablet PO SCH (10:16)
--- NOTE | 2018-11-19 14:11 | P.PNIM ---
Subjective Interval history: Follow-up visit lightheadedness Patient is sitting up in a chair in her room. She states she is ready to go home. PT evaluation recommends short term rehab. CM discussed with patient's [id number] who stated that she is the of patient's michelleon and that patients daughter lives in [place]. She stated that patient lives alone and they occasionally go check on her if needed. Patient does not have a wind turbine mechanical engineer and unclear whether or not family is agreeable to hired assistance in patient's home. Discussed with PT who notes that patient is deemed to be a high fall risk. Physical Exam Vital signs: Vital Signs 11/18/18 16:00 11/18/18 20:00 11/18/18 21:45 Temperature 97.7 F 97.3 F L Pulse Rate 64 62 54 L Respiratory Rate 16 12 Blood Pressure 175/72 H 185/75 H Pulse Oximetry 90 L 100 11/18/18 23:54 11/19/18 04:00 11/19/18 07:38 Temperature 98.5 F 97.7 F 98.5 F Pulse Rate 78 65 62 Respiratory Rate 16 14 20 Blood Pressure 192/81 H 163/73 H 165/72 H Pulse Oximetry 98 97 95 11/19/18 08:00 11/19/18 11:55 Temperature 98.5 F Pulse Rate 61 65 Respiratory Rate 20 Blood Pressure 127/60 Pulse Oximetry 98 Intake & Output 11/18/18 11/19/18 11/19/18 18:59 06:59 18:59 Other: Date of Last Bowel Movement 11/15/18 11/17/18 11/17/18 Narrative: GENERAL: Well-nourished patient in no distress SKIN: Warm and dry. No open lesions EYES: No scleral icterus. No injection or drainage. NECK: Supple, trachea midline. No JVD or lymphadenopathy. CARDIOVASCULAR: Regular rate and rhythm without murmurs, gallops, or rubs. +2 pitting edema bilateral lower extremities RESPIRATORY: Breath sounds equal bilaterally. No accessory muscle use. GASTROINTESTINAL: Abdomen soft, lower transverse tenderness, nondistended. MUSCULOSKELETAL: tremors of the head and upper extremities Results Labs CBC & Chem 7: 11/18/18 06:16 11/17/18 10:52 Assessment and Plan Plan Patient is a 88-year-old female with a history of hypertension, hypothyroidism, tachycardia, tremors presented to the ED with complaints of lightheadedness. Syncope, possible dehydration secondary to diarrhea -IVF for hydration -Carotid ultrasound negative for hemodynamically significant stenosis and 2D echo with no significant abnormality -Monitor vitals, Neuro checks Generalized weakness/debility -PT recommends SNF or Home with HH, however, patient would require hired or family assistance which does not seem to be available at present time. -continue to work out with PT while hospitalized -CM assisting with discharge planning Left lower extremity edema rule out DVT -Doppler ultrasound negative for DVT, moderate subcutaneous edema noted Diarrhea, rule out C. difficile -C. difficile negative -IVF as above -Antiemetics as needed Hypertension, chronic -Resume home medications -Cardiac diet Hypothyroidism, chronic -Resume home medications MDM: self Code: Full GI ppx: none DVT prophylaxis: Heparin Subcu Discussed with: RN, patient, supervising MD Dispo: home with HH once either family able to assist patient or wind turbine mechanical engineer can be provided per family. Not a candidate for SNF per at present time. Progress Note: Quality VTE Deep Vein Thrombosis/Pulmonary Embolism Present on Admission: No
[2018-11-19] MEDS: Heparin - SQ 10,000 UNITS/ML Vial SQ SCH (20:22)
[2018-11-20] MEDS: amLODIPine 5 MG Tablet PO SCH (08:59)
[2018-11-20] MEDS: Heparin - SQ 10,000 UNITS/ML Vial SQ SCH ×2 (09:02→20:44)
[2018-11-20 10:05] LABS: Baso % (Auto) 0.8 % (0.0-2.0); Eos # (Auto) 0.2 th/mm3 (0.0-0.4); Eos % (Auto) 3.4 % (0.0-4.0); Hematocrit 35.6 % (35.0-46.0); Hemoglobin 12.4 gm/dL (11.6-15.3); Lymph # (Auto) 0.8 th/mm3 (1.0-4.8); Lymph % (Auto) 15.8 % (9.0-44.0); Mean Corpuscular HGB Conc 34.8 % (32.0-36.0); Mean Corpuscular Hemoglobin 32.5 pg (27.0-34.0); Mean Corpuscular Volume 93.5 fL (80.0-100.0); Mean Platelet Volume 10.5 fL (7.0-11.0); Mono # (Auto) 0.4 th/mm3 (0.0-0.9); Mono % (Auto) 8.2 % (0.0-8.0); Neut # (Auto) 3.7 th/mm3 (1.8-7.7); Neut % (Auto) 71.8 % (16.0-70.0); Platelet Count 139 th/mm3 (150-450); Red Blood Count 3.81 mil/mm3 (4.00-5.30); Red Cell Distribution Width 13.8 % (11.6-17.2); White Blood Count 5.1 th/mm3 (4.0-11.0)
[2018-11-20 10:23] LABS: Calcium 8.1 mg/dL (8.5-10.1); Carbon Dioxide 26.2 meq/L (21.0-32.0); Potassium 3.8 meq/L (3.5-5.1)
--- NOTE | 2018-11-20 23:27 | P.PNIM ---
Subjective Interval history: Follow-up visit lightheaded, diarrhea, generalized weakness Patient is resting in bed. Discussed discharge planning with patient. PT recommendation reviewed with patient. Patient does not have family or caregiver who can check on her on days that Home Health will not be there. Patient states she is unable to afford a sports psychologist. Patient to continue working out with PT until her strength improves and it is deemed safe for her to go home with Home Health only. Patient currently deemed to be high fall risk per PT. Patient denies feeling dizzy or lightheaded. No abdominal pain, nausea, vomiting or diarrhea. Physical Exam Vital signs: Vital Signs 11/19/18 23:41 11/20/18 03:45 11/20/18 07:44 Temperature 97.9 F 97.6 F Pulse Rate 62 58 L Respiratory Rate 18 17 Blood Pressure 164/72 H 171/74 H Pulse Oximetry 95 95 95 11/20/18 08:00 11/20/18 11:33 11/20/18 16:00 Temperature 97.8 F 97.6 F 98.1 F Pulse Rate 76 59 L 64 Respiratory Rate 16 16 16 Blood Pressure 129/61 138/65 151/67 H Pulse Oximetry 98 98 96 11/20/18 20:00 Temperature 97.4 F L Pulse Rate 75 Respiratory Rate 20 Blood Pressure 163/73 H Pulse Oximetry 97 Intake & Output 11/20/18 11/20/18 11/21/18 06:59 18:59 06:59 Other: # Voids 2 3 Date of Last Bowel Movement 11/19/18 # Bowel Movements 1 Narrative: GENERAL: Well-nourished, elderly female patient in no distress SKIN: Warm and dry. No open lesions EYES: No scleral icterus. No injection or drainage. NECK: Supple, trachea midline. No JVD or lymphadenopathy. CARDIOVASCULAR: Regular rate and rhythm without murmurs, gallops, or rubs. +2 pitting edema bilateral lower extremities RESPIRATORY: Breath sounds equal bilaterally. No accessory muscle use. GASTROINTESTINAL: Abdomen soft, lower transverse tenderness, nondistended. MUSCULOSKELETAL: tremors of the head and upper extremities Results Labs CBC & Chem 7: 11/20/18 09:41 11/20/18 09:40 Assessment and Plan Plan Patient is a 88-year-old female with a history of hypertension, hypothyroidism, tachycardia, tremors presented to the ED with complaints of lightheadedness. Syncope, possible dehydration secondary to diarrhea -IVF for hydration -Carotid ultrasound negative for hemodynamically significant stenosis and 2D echo with no significant abnormality -Monitor vitals, Neuro checks Generalized weakness/debility -PT recommends SNF or Home with HH, however, patient would require hired or family assistance which does not seem to be available at present time. -continue to work out with PT while hospitalized -CM assisting with discharge planning Left lower extremity edema rule out DVT -Doppler ultrasound negative for DVT, moderate subcutaneous edema noted Diarrhea, rule out C. difficile -C. difficile negative -IVF as above -Antiemetics as needed Hypertension, chronic -Resume home medications -Cardiac diet Hypothyroidism, chronic -Resume home medications MDM: self Code: Full GI ppx: none DVT prophylaxis: Heparin Subcu Discussed with: RN, patient, supervising MD Dispo: home with HH once either family able to assist patient or sports psychologist can be provided per family. Not a candidate for SNF per at present time. Progress Note: Quality VTE Deep Vein Thrombosis/Pulmonary Embolism Present on Admission: No
[2018-11-21] MEDS: amLODIPine 5 MG Tablet PO SCH (09:31)
[2018-11-21] MEDS: Heparin - SQ 10,000 UNITS/ML Vial SQ SCH ×2 (09:32→20:09)
--- NOTE | 2018-11-21 10:02 | P.PNIM ---
Subjective Interval history: Follow-up visit generalized weakness, gait instability, dizzy/ lightheadedness Patient seen and examined while sitting up on the side of the bed eating breakfast. She denies any chest pain, shortness of breath, palpitations, abdominal pain, cough, fevers or chills. Tolerating PO intake. Physical Exam Vital signs: Vital Signs 11/20/18 11:33 11/20/18 16:00 11/20/18 20:00 Temperature 97.6 F 98.1 F 97.4 F L Pulse Rate 59 L 64 75 Respiratory Rate 16 16 20 Blood Pressure 138/65 151/67 H 163/73 H Pulse Oximetry 98 96 97 11/20/18 21:50 11/21/18 00:00 11/21/18 00:15 Temperature 97.7 F Pulse Rate 65 54 L 64 Respiratory Rate 12 Blood Pressure 160/74 H Pulse Oximetry 94 L 11/21/18 03:45 11/21/18 04:00 11/21/18 07:52 Temperature 98.3 F 97.8 F Pulse Rate 59 L 60 60 Respiratory Rate 12 20 Blood Pressure 136/62 159/70 H Pulse Oximetry 95 98 Intake & Output 11/20/18 11/21/18 11/21/18 18:59 06:59 18:59 Intake Total 600 / 600 Balance 600 / 600 Intake: Oral 600 / 600 Other: # Voids 3 2 Date of Last Bowel Movement 11/20/18 # Bowel Movements 1 Narrative: GENERAL: Well-nourished, elderly female patient in no distress SKIN: Warm and dry. No open lesions. Bruising right forearm secondary to IV infiltration and superficial phlebitis. EYES: No scleral icterus. No injection or drainage. NECK: Supple, trachea midline. No JVD or lymphadenopathy. CARDIOVASCULAR: Regular rate and rhythm without murmurs, gallops, or rubs. +2 pitting edema bilateral lower extremities RESPIRATORY: Breath sounds equal bilaterally. No accessory muscle use. GASTROINTESTINAL: Abdomen soft, lower transverse tenderness, nondistended. MUSCULOSKELETAL: tremors of the head and upper extremities Results Labs CBC & Chem 7: 11/20/18 09:41 11/20/18 09:40 Assessment and Plan Plan Patient is a 88-year-old female with a history of hypertension, hypothyroidism, tachycardia, tremors presented to the ED with complaints of lightheadedness. Syncope, possible dehydration secondary to diarrhea -IVF for hydration -Carotid ultrasound negative for hemodynamically significant stenosis and 2D echo with no significant abnormality -Monitor vitals, Neuro checks Generalized weakness/debility -PT recommends SNF or Home with HH, however, patient would require hired or family assistance which does not seem to be available at present time. -continue to work out with PT while hospitalized -CM assisting with discharge planning Left lower extremity edema rule out DVT -Doppler ultrasound negative for DVT, moderate subcutaneous edema noted Diarrhea, rule out C. difficile -C. difficile negative -IVF as above -Antiemetics as needed Hypertension, chronic -Resume home medications -Cardiac diet Hypothyroidism, chronic -Resume home medications MDM: self Code: Full GI ppx: none DVT prophylaxis: Heparin Subcu Discussed with: RN, patient, supervising MD Dispo: home with [facility] with PT/OT/skilled nsg/home health aid and social work consult, likely tomorrow. CM assisting. Progress Note: Quality VTE Deep Vein Thrombosis/Pulmonary Embolism Present on Admission: No
--- NOTE | 2018-11-21 13:58 | P.DCO ---
Physical Therapy Order: Evaluate and treat, Improve ambulation and Strength and gait training Occupational Therapy Order: Evaluate and treat, Improve ADL, Gross motor coordination and Fine motor coordination Home Health Nursing Order: Medical education, Signs/symptoms of disease process, Medication education-adverse effect and Nursing assessment with vital signs Home Health Aide Order: To assist in: Bathing and personal care and metal dresser and meal prep Case Management Consult Case Management Consult-Home Health: Yes I have seen patient Soraida Pierson on 11/21/18. My clinical findings support the need for the requested home health care services because: Limited mobility due to disease progression, Deconditioned with increased weakness, Limited ability to care for self and High risk of falls I certify that my clinical findings support that this patient is homebound because: Unsteady gait/balance and Unsafe to leave home unassisted
--- NOTE | 2018-11-21 16:00 | P.DCO ---
Auto Glass Technician Order: To evaluate: Living conditions/environment and Support services Order: To provide: Long range planning and Community services Case Management Consult Case Management Consult-Home Health: Yes I have seen patient Soraida Pierson on 11/21/18. My clinical findings support the need for the requested home health care services because: I certify that my clinical findings support that this patient is homebound because:
[2018-11-21] MEDS: Amiodarone 200 MG Tablet PO SCH (20:09)
[2018-11-22 07:38] VITALS: TEMP 97.6
[2018-11-22] MEDS ORDERED: amLODIPine 5 MG Tablet PO SCH (09:00)
[2018-11-22] MEDS: Heparin - SQ 10,000 UNITS/ML Vial SQ SCH (09:01)
--- NOTE | 2018-11-22 10:25 | P.DS ---
DS: Providers Date of admission: 11/17/18 01:26 Primary care physician: Nelson Moore MD Anticipated date of discharge: 11/22/18 Brief History from admission: 88-year-old female with a history of hypertension , hypothyroidism, A. fib, tremors presented to the ED with complaints of lightheadedness. Patient states she was sitting on a barstool after dinner and felt very lightheaded and blacked out for about a minute. She denies falling off a barstool or hitting her head at any time. She is complaining of nausea and diarrhea for the last 4 days with a cramping sensation in her abdomen. She does state she has some increased swelling in her bilateral lower extremities recently. She denies any fever or chills. No cough or congestion. She sees Dr. Plummer for cardiology. DS: Diagnosis Discharge Diagnosis (1) Syncope: Status: Acute Diagnosis: Principal (2) Generalized weakness: Status: Acute Diagnosis: Principal (3) Lower extremity edema: Status: Acute Diagnosis: Principal (4) Diarrhea: Status: Acute Diagnosis: Secondary (5) Hypertension: Status: Acute Diagnosis: Secondary (6) Hypothyroidism: Status: Acute Diagnosis: Secondary DS: Summary Patient with episode of syncope which was most likely secondary to dehydration and diarrhea. A carotid ultrasound was completed and negative for hemodynamically significant stenosis. Echocardiogram showed normal left ventricular size, mild concentric left ventricular hypertrophy and LV systolic function that was hyperdynamic with an estimated EF in the range of 65-70%. Patient has aortic valve sclerosis and mild to moderate aortic valve regurgitation. Patient felt dizzy and lightheaded at time of admission, however , this resolved status post IV fluid administration. Patient also had left lower extremity edema and a Doppler ultrasound was completed and negative for DVT. Patient complained of diarrhea and C. difficile testing was negative. Patient stated that she had was evaluated by GI in the past for diarrhea and was told to take Pepto Bismol but has not had the chance to purchase this from a store. Physical therapy evaluation and treatment were initiated during her stay. Patient was deemed to be a high fall risk and home health care with continued PT/OT evaluation and treatment was recommended. Patient was educated on obtaining a life alert. Case management also discussed discharge planning with patient's stepson and stepdaughter in law. Case management assisted with setting up home health services with PT/OT/retirement/home health aide and social work consultation. Patient was in agreement with plan of care. She was hemodynamically stable on day of discharge. All questions were answered at the bedside. Time Spent with Patient Total time spent providing and/or coordinating discharge services: Greater than 30 minutes Status at Discharge Functional status at discharge: uses cane/walker Overall status at discharge: patient is back to baseline Quality: VTE Deep Vein Thrombosis/Pulmonary Embolism Present on Admission: No Exam Narrative Exam Narrative: GENERAL: Well-nourished, elderly female patient in no distress SKIN: Warm and dry. No open lesions. Bruising right forearm secondary to IV infiltration and superficial phlebitis. EYES: No scleral icterus. No injection or drainage. NECK: Supple, trachea midline. No JVD or lymphadenopathy. CARDIOVASCULAR: Regular rate and rhythm without murmurs, gallops, or rubs. +2 pitting edema bilateral lower extremities RESPIRATORY: Breath sounds equal bilaterally. No accessory muscle use. GASTROINTESTINAL: Abdomen soft, lower transverse tenderness, nondistended. MUSCULOSKELETAL: tremors of the head and upper extremities Results Impressions ITS Impressions Head CT 11/16/18 21:44 CONCLUSION: No acute intracranial findings. . Chest X-Ray 11/16/18 21:45 CONCLUSION: 1. No acute cardiopulmonary disease. 2. Hyperinflation. 3. Cardiomegaly. Carotid Doppler Study 11/17/18 00:00 CONCLUSION: Negative for hemodynamically significant stenosis. Venous Doppler Study 11/17/18 00:00 CONCLUSION: 1. Negative for deep venous thrombosis 2. Moderate subcutaneous edema Discharge Plan Discharge Disposition Patient Disposition: W/Home Health Service Discharge Condition Condition: Stable Discharge Order Discharge Orders: Discharge Order (Routine); Ordered 11/22/18 Ordered By: Bar Mari Discharge Details Anticipated Discharge Date: 11/22/18 Physicians Team Primary Care Provider: Nelson Moore Attending Provider: Lashay Russo Rxs /Orders / Referrals /Forms Prescriptions: Continue amlodipine 2.5 mg Tablet 2.5 mg PO DAILY RF: 0 levothyroxine 25 mcg Tablet 1 tab PO DAILY RF: 0 furosemide 20 mg Tablet See Label Instructions .ROUTE .COMPLEX RF: 0 carbidopa-levodopa 25-100 mg Tablet 1.5 tab PO TID RF: 0 amiodarone 100 mg Tablet 100 mg PO 2XWEEK RF: 0 Referrals: Nelson Moore MD [Primary Care Provider] - See Instructions (Please follow up in 1 week. ) Discharge Instructions Additional Instructions: Your Health Problems: Goals to Promote Your Health: * To prevent worsening of your condition * To maintain your health at the optimal level Directions to Meet Your Goals: * Take your medications as prescribed * Follow your dietary instruction * Follow activity as directed * Keep your appointments as scheduled * Take your immunizations and boosters as scheduled * If your symptoms worsen call your PCP * If no PCP go to Urgent Care or Emergency Room Smoking is dangerous to your health. Avoid second hand smoke. You may reach the 24-hour crisis hotline for domestic abuse at . Post Discharge Care Plan Care Plan Goals: Your Health Problems: syncope Goals to Promote Your Health: * To prevent worsening of your condition * To maintain your health at the optimal level Directions to Meet Your Goals: * Take your medications as prescribed * Follow your dietary instruction * Follow activity as directed * Keep your appointments as scheduled * Take your immunizations and boosters as scheduled * If your symptoms worsen call your PCP * If no PCP go to Urgent Care or Emergency Room Smoking is dangerous to your health. Avoid second hand smoke. You may reach the 24-hour crisis hotline for domestic abuse at . Status ED Status: Left Department
[2018-11-22 11:48] VITALS: BP 140/63; PULSE 60; RESP 16; O2SAT 94
== END 2018-11-22 13:41 | disposition home health service (06) ==
LOC: NEDA 21:01 → NEPC 21:01 → NEPFCDU 11-17 03:48
PROVIDERS: ADMIT Hospitalist; ATTEND Hospitalist
DX: R19.7 Diarrhea, unspecified; S50.11XA Contusion of right forearm, initial encounter; I08.1 Rheumatic disorders of both mitral and tricuspid valves; R60.0 Localized edema; E03.9 Hypothyroidism, unspecified; I10 Essential (primary) hypertension; X58.XXXA Exposure to other specified factors, initial encounter; R55 Syncope and collapse
CPT/HCPCS: 70450; 71010; 71045; 80048; 80053; 80307; 81001; 82550; 82552; 83520; 83690; 83735; 83880; 84484; 85025; 85610; 85730; 87493; 90760; 90761; 93005; 93306; 93880; 93971; 96360; 96361; 97110; 97116; 97162; 97530; 99285; G0378; G8987; G8988; J1644; J7040